=== PATIENT | male | born 1980 | race Hispanic/Latino ===

== ENCOUNTER → 2022-10-30 | Outpatient (CLI) | payer OTHER ==
[2022-10-30 11:33] LABS: ALKALINE PHOSPHATASE 109 U/L (46-116); ALT/SGPT 39 U/L (7.0-40); AST/SGOT 20 U/L (<34); BILIRUBIN,TOTAL 0.5 MG/DL (0.3-1.2); BLOOD UREA NITROGEN 17 MG/DL (9-23); CALCIUM LEVEL 9.9 MG/DL (8.5-10.1); CARBON DIOXIDE LEVEL 27 MMOL/L (20-31); CHLORIDE LEVEL 100 MMOL/L (98-107); CHOLESTEROL LEVEL 182 MG/DL (<200); CHOLESTEROL RISK RATIO 3.37 (<5); CREATININE FOR GFR 0.84 MG/DL (0.70-1.30); GLOMERULAR FILTRATION RATE > 60.0 (>60); GLUCOSE, FASTING 252 MG/DL (60-100); HDL CHOLESTEROL 53.9 MG/DL (>40); LDL CHOLESTEROL 92.3 MG/DL (<100); NON-HDL-C 128.1 MG/DL; POTASSIUM SERUM 3.9 MMOL/L (3.5-5.1); SODIUM LEVEL 134 MMOL/L (136-145); TRIGLYCERIDES LEVEL 179 MG/DL (<150)
[2022-10-30 11:38] LABS: THYROID STIMULATING HORMONE 2.666 uIU/ML (0.55-4.78)
[2022-11-03 18:07] LABS: ISLET CELL ANTIBODIES Negative (Neg:<1:1)
== END ==
LOC: M PLALAB 08:15
PROVIDERS: ATTEND Internal Medicine Endocrinology, Diabetes & Metabolism
DX: E78.00 Pure hypercholesterolemia, unspecified (principal); E11.65 Type 2 diabetes mellitus with hyperglycemia

== ENCOUNTER → 2024-12-28 | Outpatient (CLI) | payer OTHER | LOC: M RAD 06:34 | PROVIDERS: ATTEND Family Medicine | DX: M23.322 Other meniscus derangements, posterior horn of medial meniscus, left knee (principal); M71.22 Synovial cyst of popliteal space [Baker], left knee; M25.461 Effusion, right knee; M25.462 Effusion, left knee ==

== ENCOUNTER → 2025-04-05 | Outpatient (CLI) | payer OTHER | LOC: M CARPUL 07:13 | PROVIDERS: ATTEND Student in an Organized Health Care Education/Training Program | DX: R05.3 Chronic cough (principal) ==